=== PATIENT | male | born 2005 | race Caucasian/White ===

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

== ENCOUNTER 2025-01-25 18:59 | Emergency (ER) | payer OTHER, SELFPAY ==
[2025-01-25 19:08] VITALS: BP 162/96; PULSE 88; O2SAT 96
--- NOTE | 2025-01-25 21:51 | PC.NURSE ---
This RN attempted to call patient from the waiting room to complete triage assessment at 20:10, 21:25, and 21:49, no answer.
== END 2025-01-25 23:15 | disposition left against medical advice (07) ==
LOC: HO.ED 23:03
PROVIDERS: Emergency Provider Emergency Medicine; PCP Internal Medicine
DX: M79.645 Pain in left finger(s) (principal)